=== PATIENT | male | born 1960 | race Caucasian/White ===

== ENCOUNTER → 2016-12-24 | Outpatient (CLI) | payer OTHER, MEDICARE ==
[2015-05-09 12:00] VITALS: BP 144/93
[~2016-12-24] MED LIST: ALPR0.5T PO; ASCO500C PO; ASPI-630 PO; ASPI325T70 PO; CHOL200074 PO; CLOP75TA PO; CYCL10TA2 PO; DICL1TAB50 PO; GEMF600T3 PO; HYDR1TAB26 PO; LISI-334 PO; LISI1TAB7 PO; METO25TA4 PO; MULT1TAB52 PO; NITR0.4T22 SL; OMEG500C PO; PANT20TA3 PO; PRAS10TA9 PO; REGADENOSON 0.4 MG/5 ML DISP.SYRIN. IV ONE; SIMV20TA3 PO
--- NOTE | 2016-12-24 11:12 | CARD ---
APPROVED REPORT EXAM: Two-dimensional and M-mode echocardiogram with Doppler and color Doppler. Other Information Quality : GoodHR: 74bpm Rhythm : NSR INDICATION Cardiac Disease: CAD 2D DIMENSIONS RVDd3.9 (2.9-3.5cm)Left Atrium(2D)3.7 (1.6-4.0cm) IVSd0.9 (0.7-1.1cm)Aortic Root(2D)3.1 (2.0-3.7cm) LVDd4.2 (3.9-5.9cm)LVOT Diameter2.3 (1.8-2.4cm) PWd0.9 (0.7-1.1cm)LVDs2.6 (2.5-4.0cm) FS (%) 37.2 %SV51.7 ml LVEF(%)67.6 (>50%) Aortic Valve AoV Peak Tunde.118.3cm/sAoV VTI23.9cm AO Peak GR.5.6mmHgLVOT Peak Tunde.101.8cm/s AO Mean GR.3mmHgAVA (VMAX)3.52cm2 Mitral Valve MV E Ekvsregn43.6cm/sMV E Peak Gr.2mmHg MV DECEL [id number] A Diazishc54.7cm/s MV E Mean Gr.1mmHgE/A Ratio0.8 MV A Cmaqpnvw60wz Pulmonary Valve PV Peak Euyxjqtd45.8cm/s Tricuspid Valve TR P. Louthglt616xt/sTR Peak Gr.22mmHg Pulmonary Vein S1 Mtwhundt21.6cm/sD2 Znnhqnop40.2cm/s PVa bxrbtngi20cddr LEFT VENTRICLE The left ventricle is normal size. There is normal left ventricular wall thickness. The left ventricu lar systolic function is normal and the ejection fraction is within normal range. The Ejection Fracti on is 65-70%. There is normal LV segmental wall motion. Transmitral Doppler flow pattern is Grade I-a bnormal relaxation pattern. RIGHT VENTRICLE The right ventricle is mildly dilated. There is normal right ventricular wall thickness. The right ve ntricular systolic function is normal. ATRIA The left atrium size is normal. The right atrium size is normal. The interatrial septum is intact wit h no evidence for an atrial septal defect or patent foramen ovale as noted on 2-D or Doppler imaging. AORTIC VALVE The aortic valve is mildly thickened. The aortic valve is trileaflet. Doppler and Color Flow revealed no significant aortic regurgitation. There is no significant aortic valvular stenosis. MITRAL VALVE The mitral valve leaflets are mildly thickened. There is no evidence of mitral valve prolapse. There is no mitral valve stenosis. Doppler and Color Flow revealed trace mitral regurgitation. TRICUSPID VALVE Doppler and Color Flow revealed trace tricuspid regurgitation. The pulmonary artery systolic pressure is estimated at 25 mmHg. There is no pulmonary hypertension. PULMONIC VALVE The pulmonic valve is not well visualized but appears to open adequately. Doppler and Color Flow reve aled trace pulmonic valvular regurgitation. There is no pulmonic valvular stenosis by spectral Dopple r. GREAT VESSELS The aortic root is normal in size. The ascending aorta is normal in size. The pulmonary artery is nor mal. The IVC is normal in size and collapses >50% with inspiration. PERICARDIAL EFFUSION There is no evidence of significant pericardial effusion. Critical Notification Critical Value: No <Conclusion> The left ventricular systolic function is normal and the ejection fraction is within normal range. Th e Ejection Fraction is 65-70%. There is normal LV segmental wall motion.
--- NOTE | 2016-12-24 13:56 | RAD ---
APPROVED REPORT Test Type: Pharmacological Stress Nurse/Tech: Carmina Dixon R.N. Test Indications: CAD, Cardiac History: stents, high cholesterol Medications: See Electronic Medical Record Medical History: See Electronic Medical Record Resting ECG: SR Resting Heart Rate: 74 bpm Resting Blood Pressure: 127/75mmHg Pretest Chest Pain: No chest pain Nurse/Tech Notes S1S2, lungs CTA Consent: The procedure was explained to the patient in lay terms. Informed consent was witnessed. Elliott eout was entered into [employer]. History and Stress Test performed by RT Jamey (R) (N) Pharm. Details Pharmacologic stress testing was performed using 0.4mg per 5ml of regadenoson given intravenously ove r 7-10 seconds. Stress Symptoms No chest pain or symptoms. POST EXERCISE Reason for Termination: Infusion complete Max HR: 140 bpm Max Blood Pressure: 140/63mmHg Blood Pressure response to exercise: Normal blood pressure response during stress. Heart Rate response to exercise: wnl Chest Pain: No. Arrhythmia: No. ST Change: Yes. depression noted in leads V3-V6. notified Holly FOSTER regarding these changes at 11:19 INTERPRETATION Stress EKG Conclusion: Abnormal EKG response with diffuse anterolateral TWI and 2mm ST segment depres vikas after vasodilator infusion. Subtle NANCY in aVR of less than 1 mm. Imaging Protocol IMAGE PROTOCOL: Rest Tc-99m/stress Tc-99m 1 day Rest: Stress: Viability: Radiopharm.Tc99m BzmuhgebrWz00p Sestamibi Gwbc20tQx 32mCi Img Date 12/24/2016 12/24/2016 Inj-Img Uxwc51rhj. 60min. Rest Admin Site:IV - Left AntecubitalAdministrator:YVONNE Thomas, ARRT (R)(N) Stress Admin Site: IV - Left AntecubitalAdministrator: RT Jamey (R)(N) STRESS DATA End Diast. Vol.82.0mlAv. Heart Rate74.0bpm End Syst. Vol.20.0mlCO Index BSA0.0L/min Myocardial Bfsw533.0gEject. Itligvkl48.0% Stress Rates Pk. Fill Rate2.71EDV/secLVtime Pk. Fill 225.29msec Pk. Empty Rate4.10ESV/secLVtime Pk. Zicxw584.06msec 1/3 Pk. Fill1.41EDV/sec Stress Scores Regional WT0.00Summed WT0.00 Regional WM0.00Summed WM2.00 The rest and stress images show normal perfusion, normal contraction and thickening. LV Perfusion 1 TCD/TID: Yes LV Perf. Quant 17 Seg. SSS0.00 17 Seg. SRS0.00 17 Seg. SDS0.00 Stress Defect Extent (% LAD)0.00Rest Defect Extent (% LAD)0.00Rev. Defect Extent (% LAD)0.00 Stress Defect Extent (% LCX) 5.00Rest Defect Extent (% LCX)0.00Rev. Defect Extent (% LCX)2.50 Stress Defect Extent (% RCA)0.00Rest Defect Extent (% RCA)0.00Rev. Defect Extent (% RCA)0.00 Stress Defect Extent (% KAVON)0.90Rest Defect Extent (% KAVON)0.00Rev. Defect Extent (% KAVON)0.40 Other Information Quality:Good Risk Assessment: Moderate-High Risk Conclusion 1. Abnormal EKG response with anterolateral ST segment changes. 2. Normal perfusion at stress/rest but there is a higher than normal TID ratio suggestive of balanced ischemia. 3. Normal EF at > 70% 4. Moderate risk study Recommendations Given abnormal EKG response and threshold levels of transient ischemic dilation, consider coronary an giography if indicated.
== END | disposition home or self-care (01) ==
LOC: ECHO 08:17
PROVIDERS: ATTEND Internal Medicine Cardiovascular Disease
DX: I25.10 Atherosclerotic heart disease of native coronary artery without angina pectoris (principal); I31.3 Pericardial effusion (noninflammatory); I10 Essential (primary) hypertension; I49.5 Sick sinus syndrome; R94.31 Abnormal electrocardiogram [ECG] [EKG]; Z79.01 Long term (current) use of anticoagulants
CPT/HCPCS: 78452; 93017; 93306; 96374; 96375; 96376; A9500; J2785

== ENCOUNTER 2017-01-07 08:57 | Outpatient (CLI) | payer OTHER, MEDICARE ==
[2017-01-07] VITALS (9 sets, daily range): BP systolic 94–124; BP diastolic 60–73
[~2017-01-07] VITALS: Ht 170.2 cm; Wt 79.4 kg
[~2017-01-07 08:57] MED LIST changes: -ASCO500C PO; -ASPI-630 PO; -MULT1TAB52 PO; -NITR0.4T22 SL; -REGADENOSON 0.4 MG/5 ML DISP.SYRIN. IV ONE
[2017-01-07] MEDS ORDERED: IOHEXOL 300 MG/ML 100ML VIAL. ONE (09:25)
[2017-01-07] MEDS ORDERED: LIDOCAINE 2% 20 ML VIAL. ONE (09:25)
[2017-01-07 09:26] LABS: HEMATOCRIT 43.8 % (39.0-53.0); HEMOGLOBIN 15.4 g/dL (13.0-17.5); RED BLOOD COUNT 4.76 x10^6/uL (4.30-5.70); RED CELL DISTRIBUTION WIDTH 12.9 % (11.5-14.5); WHITE BLOOD COUNT 6.3 x10^3/uL (4.0-11.0)
[2017-01-07 09:36] LABS: INR 1.1 (0.8-1.1); PROTHROMBIN TIME PATIENT 13.5 SEC (11.7-14.0)
[2017-01-07] MEDS ORDERED: HEPARIN for IV BOLUS 10,000 UNIT/10 ML VIAL. ONE (09:48)
[2017-01-07] MEDS ORDERED: MIDAZOLAM HCL/PF 2 MG/2 ML VIAL. ONE (09:48)
[2017-01-07] MEDS ORDERED: VERAPAMIL 5 MG/2 ML VIAL. ONE (09:48)
[2017-01-07] MEDS ORDERED: fentaNYL PF VIAL 100 MCG/2 ML VIAL ONE (09:48)
[2017-01-07] MEDS ORDERED: NITROGLYCERIN 200 MCG/2 ML SYRINGE FOR CATH/VASC LAB. ONE (09:48)
[2017-01-07] MEDS ORDERED: MULT1TAB52 PO (09:52)
[2017-01-07] MEDS ORDERED: ASPI-630 PO (09:52)
[2017-01-07] MEDS ORDERED: CLOP75TA PO (09:52)
[2017-01-07] MEDS ORDERED: NITR0.4T22 SL (09:52)
[2017-01-07] MEDS ORDERED: ASCO500C PO (09:52)
[2017-01-07] MEDS ORDERED: HEPARIN for IV BOLUS 10,000 UNIT/10 ML VIAL. IART ONE (10:00)
[2017-01-07] MEDS ORDERED: LIDOCAINE 2% 20 ML VIAL. IJ ONE (10:00)
[2017-01-07] MEDS ORDERED: fentaNYL PF VIAL 100 MCG/2 ML VIAL IV ONE (10:00)
[2017-01-07] MEDS ORDERED: NITROGLYCERIN 200 MCG/2 ML SYRINGE FOR CATH/VASC LAB. IART ONE (10:00)
[2017-01-07] MEDS ORDERED: MIDAZOLAM HCL/PF 2 MG/2 ML VIAL. IV ONE (10:00)
[2017-01-07] MEDS ORDERED: VERAPAMIL 5 MG/2 ML VIAL. IART ONE (10:00)
[2017-01-07] MEDS ORDERED: IOHEXOL 300 MG/ML 100ML VIAL. IART ONE (10:00)
[2017-01-07 10:03] LABS: CALCIUM 9.5 mg/dL (8.5-10.1); CREATININE 0.9 mg/dL (0.7-1.3); GFR 86.7; POTASSIUM 4.2 mmol/L (3.5-5.1)
[2017-01-07] MEDS ORDERED: IV 1/2 NORMAL SALINE 1,000 ML IV SCH (10:27)
--- NOTE | 2017-01-07 10:29 | PDOC ---
MODERATE SEDATION ASSESSMENT RISKS/ALTERNATIVES Risks/Alternatives Risks and alternatives of this type of sedation and procedure discussed with: RISK/ALTERNATIVES: Patient H & P ON CHART H & P H & P on chart and reviewed for co-morbid conditions and appropriate labs. H&P ON CHART: Yes STATUS PREG STATUS ASSESSED: N/A MEDS/ALLERGIES REVIEWED Meds/Allergies Reviewed Medications and Allergies including time and route of recently administered narcotics and sedatives. MEDS/ALLERGIES REVIEWED: Yes ASA RATING ASA RATING: II AIRWAY ASSESSMENT Airway Assessment Airway patency, oral function limitations, presence of caps, crowns, dentures, partials, and ability to extend neck assessed. AIRWAY ASSESSMENT: Yes MALLAMPATI SCORE MALLAMPATI SCORE: II PRE-SEDATION ASSESSMENT PRE-SEDATION ASSESSMENT: Yes LILLY GARVEY MD Jan 07, 2017 10:28
--- NOTE | 2017-01-07 10:55 | CARD ---
APPROVED REPORT Procedure(s) performed: Left heart catheterization, selective coronary angiography and left ventricul ography via right transradial approach Moderate Sedation: 24 minutes INDICATION The indication(s) include : Coronary artery disease, positive stress test. PROCEDURE NARRATIVE After explaining the risks, benefits and alternative options, informed consent was obtained from gustavo ent. Patient was brought to the cardiac Lining Machine Tender and right wrist was prepped and draped in the usual fashion after confirming a positive modified Nick's test. Arterial access was obtained in the [facility] radial artery and a 6 Bahraini sheath was inserted. 6 Bahraini Rommel catheter was used to perform namita ective angiography of the left and right coronary arteries. 6 Bahraini pigtail catheter was used to pe rform left ventriculography. Patient tolerated the procedure well. Hemostasis was achieved using TR band. There were no immediate complications. The following findings were noted. FINDINGS 1. Hemodynamics: Left ventricular end-diastolic pressure of 148mmHg. No pullback gradient across th e aortic valve. 2. Left ventriculography: Normal left ventricle systolic function with ejection fraction estimated at 70%. No significant mitral regurgitation seen. 3. Coronary angiography: a. The left main coronary artery arose from the left sinus of Valsalva, gave rise to the left anteri or descending and left circumflex arteries and did not show any significant stenosis. b. The left anterior descending artery showed widely patent stents in mid segment and the first diag onal branch. c. The left circumflex artery did not show any significant stenosis. d. The right coronary artery was a large and dominant vessel arising from the right sinus of Valsalv a that did not show any significant stenosis. Conclusion 1. No significant coronary artery disease with patent previously placed stents in left anterior desc ending artery and diagonal branch 2. Normal left ventricular systolic function with ejection fraction estimated at 70%. Recommendations Medical Therapy
== END 2017-01-07 13:15 | disposition home or self-care (01) ==
LOC: CCL 08:57
PROVIDERS: ATTEND Internal Medicine Cardiovascular Disease
DX: I25.10 Atherosclerotic heart disease of native coronary artery without angina pectoris (principal); E78.00 Pure hypercholesterolemia, unspecified; I10 Essential (primary) hypertension; K21.9 Gastro-esophageal reflux disease without esophagitis; F41.9 Anxiety disorder, unspecified; Z87.39 Personal history of other diseases of the musculoskeletal system and connective tissue
CPT/HCPCS: 36415; 80048; 85027; 85610; 93458; 99152; 99153; C1769; C1892; J1644; J2250; J3010; J3490; Q9967; J2001

== ENCOUNTER → 2018-02-01 | Outpatient (CLI) | payer MEDICARE ==
[2017-01-07 12:50] VITALS: BP 94/60
[~2018-02-01] MED LIST changes: +ASCO500C PO; +ASPI-630 PO; -GEMF600T3 PO; +GEMF600T4 PO; +MULT1TAB52 PO; +NITR0.4T22 SL
--- NOTE | 2018-02-01 13:38 | CARD ---
MR#: [id number] Date of Study: 02/01/2018 Ordering Physician: LILLY AGRVEY, Referring Physician: LILLY GARVEY, Tech: Anuradha Pardo APPROVED REPORT EXAM: Two-dimensional and M-mode echocardiogram with Doppler and color Doppler. Other Information Quality : GoodHR: 72bpm INDICATION CAD RISK FACTORS Hypertension Hyperlipidemia 2D DIMENSIONS RVDd3.6 (2.9-3.5cm)Left Atrium(2D)3.8 (1.6-4.0cm) IVSd1.2 (0.7-1.1cm)Aortic Root(2D)3.5 (2.0-3.7cm) LVDd4.5 (3.9-5.9cm)LVOT Diameter2.4 (1.8-2.4cm) PWd1.1 (0.7-1.1cm)LVDs2.5 (2.5-4.0cm) FS (%) 45.4 %SV71.3 ml Aortic Valve AoV Peak Tunde.102.7cm/sAoV VTI18.7cm AO Peak GR.4.2mmHgAO Mean GR.2mmHg Mitral Valve MV E Usuzyrko92.3cm/sMV DECEL AJSK507rp MV A Ohwibeyn69.7cm/sMV SEC50mz E/A Ratio0.9MVA (PHT)2.91cm2 TDI E/Medial E'8.6 Pulmonary Valve PV Peak Hbwcgvwu01.2cm/sPV Peak Grad.3mmHg Tricuspid Valve TR P. Jzaicwew630py/sRAP PCNKSPGT8yxUd TR Peak Gr.30ydWpBKWJ90cfZu LEFT VENTRICLE The left ventricle is normal size. There is borderline to mild concentric left ventricular hypertroph y. The left ventricular systolic function is normal and the ejection fraction is within normal range. The Ejection Fraction is 60-65%. There is normal LV segmental wall motion. Transmitral Doppler flow pattern is Grade II-pseudonormal filling dynamics. RIGHT VENTRICLE The right ventricle is normal size. There is normal right ventricular wall thickness. The right ventr icular systolic function is normal. ATRIA The left atrium size is normal. The right atrium size is normal. The interatrial septum is intact wit h no evidence for an atrial septal defect or patent foramen ovale as noted on 2-D or Doppler imaging. AORTIC VALVE The aortic valve is normal in structure and function. Doppler and Color Flow revealed trace aortic re gurgitation. There is no significant aortic valvular stenosis. MITRAL VALVE The mitral valve is normal in structure and function. Doppler and Color-flow revealed trace mitral re gurgitation. TRICUSPID VALVE The tricuspid valve is normal in structure and function. Doppler and Color Flow revealed trace tricus pid regurgitation. PULMONIC VALVE The pulmonary valve is normal in structure and function. Doppler and Color Flow revealed trace pulmon ic valvular regurgitation. GREAT VESSELS The aortic root is normal in size. The IVC was not visualized. PERICARDIAL EFFUSION There is no evidence of significant pericardial effusion. Critical Notification Critical Value: No <Conclusion> The left ventricle is normal size. The left ventricular systolic function is normal and the ejection fraction is within normal range. The Ejection Fraction is 60-65%. There is borderline to mild concentric left ventricular hypertrophy. There is no significant aortic valvular stenosis. Doppler and Color Flow revealed trace aortic regurgitation. Doppler and Color-flow revealed trace mitral regurgitation. Doppler and Color Flow revealed trace tricuspid regurgitation. Signed by : Everett Arzate MD Electronically Approved : 02/01/2018 13:37:03
== END | disposition home or self-care (01) ==
LOC: ECHO 08:36
PROVIDERS: ATTEND Internal Medicine Cardiovascular Disease
DX: I25.10 Atherosclerotic heart disease of native coronary artery without angina pectoris (principal); I10 Essential (primary) hypertension; E78.5 Hyperlipidemia, unspecified
CPT/HCPCS: 93306

== ENCOUNTER 2019-01-26 07:00 | Outpatient (CLI) | payer OTHER ==
[2019-01-26] VITALS (12 sets, daily range): BP systolic 107–134; BP diastolic 71–83
[~2019-01-26] VITALS: Ht 167.6 cm; Wt 81.6 kg
[~2019-01-26 07:00] MED LIST changes: -GEMF600T4 PO; +GEMF600T8 PO; +LISI1TAB20 PO; -LISI1TAB7 PO
[2019-01-26] MEDS ORDERED: SIMV40TA3 PO (07:34)
[2019-01-26] MEDS ORDERED: HYDR-2765 PO (07:34)
[2019-01-26] MEDS ORDERED: METO50TA6 PO (07:34)
[2019-01-26] MEDS ORDERED: LISI1TAB19 PO (07:34)
[2019-01-26] MEDS ORDERED: IODIXANOL 320 MG/ML 100 ML VIAL. ONE (07:41)
[2019-01-26] MEDS ORDERED: LIDOCAINE 1% PF 2 ML VIAL. ONE (07:41)
[2019-01-26 07:45] LABS: HEMOGLOBIN 14.6 g/dL (13.0-17.5); RED BLOOD COUNT 4.56 x10^6/uL (4.30-5.70); RED CELL DISTRIBUTION WIDTH 13.2 % (11.5-14.5); WHITE BLOOD COUNT 6.8 x10^3/uL (4.0-11.0)
[2019-01-26 07:55] LABS: PROTHROMBIN TIME PATIENT 13.8 SEC (11.7-14.0)
[2019-01-26 08:01] LABS: CALCIUM 9.2 mg/dL (8.5-10.1); GFR 76.2; POTASSIUM 3.7 mmol/L (3.5-5.1)
[2019-01-26] MEDS ORDERED: fentaNYL PF VIAL 100 MCG/2 ML VIAL ONE (08:24)
[2019-01-26] MEDS ORDERED: MIDAZOLAM HCL/PF 2 MG/2 ML VIAL. ONE (08:25)
[2019-01-26] MEDS ORDERED: NITROGLYCERIN 200 MCG/2 ML SYRINGE FOR CATH/VASC LAB. ONE (08:25)
[2019-01-26] MEDS ORDERED: HEPARIN for IV BOLUS 10,000 UNIT/10 ML VIAL. ONE (08:25)
[2019-01-26] MEDS ORDERED: VERAPAMIL 5 MG/2 ML VIAL. ONE (08:25)
[2019-01-26] MEDS ORDERED: NITROGLYCERIN SUBLINGUAL 0.4 MG BOTTLE OF 25. SL PRN (09:15)
[2019-01-26] MEDS ORDERED: LIDOCAINE 1% PF 2 ML VIAL. INJ ONE (09:15)
[2019-01-26] MEDS ORDERED: HEPARIN for IV BOLUS 10,000 UNIT/10 ML VIAL. IART ONE (09:15)
[2019-01-26] MEDS ORDERED: IODIXANOL 320 MG/ML 100 ML VIAL. IART ONE (09:15)
[2019-01-26] MEDS ORDERED: 0.9 % SODIUM CHLORIDE 10 ML DISP.SYRIN. IV PRN (09:15)
[2019-01-26] MEDS ORDERED: fentaNYL PF VIAL 100 MCG/2 ML VIAL IV ONE (09:15)
[2019-01-26] MEDS ORDERED: IV 1/2 NORMAL SALINE 1,000 ML IV SCH (09:15)
[2019-01-26] MEDS ORDERED: NITROGLYCERIN 200 MCG/2 ML SYRINGE FOR CATH/VASC LAB. IART ONE (09:15)
[2019-01-26] MEDS ORDERED: VERAPAMIL 5 MG/2 ML VIAL. IART ONE (09:15)
[2019-01-26] MEDS ORDERED: MIDAZOLAM HCL/PF 2 MG/2 ML VIAL. IV ONE (09:15)
--- NOTE | 2019-01-26 09:15 | PDOC ---
MODERATE SEDATION ASSESSMENT RISKS/ALTERNATIVES Risks/Alternatives Risks and alternatives of this type of sedation and procedure discussed with: RISK/ALTERNATIVES: Patient H & P ON CHART H & P H & P on chart and reviewed for co-morbid conditions and appropriate labs. H&P ON CHART: Yes STATUS PREG STATUS ASSESSED: N/A MEDS/ALLERGIES REVIEWED Meds/Allergies Reviewed Medications and Allergies including time and route of recently administered narcotics and sedatives. MEDS/ALLERGIES REVIEWED: Yes ASA RATING ASA RATING: II AIRWAY ASSESSMENT Airway Assessment Airway patency, oral function limitations, presence of caps, crowns, dentures, partials, and ability to extend neck assessed. AIRWAY ASSESSMENT: Yes MALLAMPATI SCORE MALLAMPATI SCORE: II PRE-SEDATION ASSESSMENT PRE-SEDATION ASSESSMENT: Yes LILLY GARVEY MD Jan 26, 2019 09:15
--- NOTE | 2019-01-26 09:22 | CARD ---
MR#: [id number] Date of Study: 01/26/2019 Ordering Physician: LILLY GARVEY, Referring Physician: LILLY GARVEY Tech: PARIS DE GUZMAN RTR APPROVED REPORT Technologist: PARIS DE GUZMAN RTR Nurse: Kelly Juarez R.N. Procedure(s) performed: Left heart catheterization, selective coronary angiography and left ventricul ography via right transradial approach MODERATE SEDATION TIME: 34 MINUTES FLUORO TIME: 2.8 MIN DOSE: 42.9 GYCM2 CONTRAST: 90 INDICATION The indication(s) include : unstable angina . CSHA Clinical Frailty Scale CSHA Clinical Frailty Scale: Managing Well Heart Failure Heart Failure: No PROCEDURE NARRATIVE After explaining the risks, benefits and alternative options, informed consent was obtained from gustavo ent. Patient was brought to the cardiac Supervisor Offset Plate Preparation and right wrist was prepped and draped in the usual fashion after confirming a positive modified Nick's test. Arterial access was obtained in the [facility] t radial artery and a 6 Palauan sheath was inserted. 6 Palauan Rommel catheter was used to perform namita ective angiography of the left and right coronary arteries. 6 Palauan pigtail catheter was used to pe rform left ventriculography. Patient tolerated the procedure well. Hemostasis was achieved using TR band. There were no immediate complications. The following findings were noted. FINDINGS 1. Hemodynamics: Left ventricular end-diastolic pressure of 15 mmHg. No pullback gradient across th e aortic valve. 2. Left ventriculography: Normal left ventricle systolic function with ejection fraction estimated at 65-70%. No significant mitral regurgitation seen. 3. Coronary angiography: a. The left main coronary artery arose from the left sinus of Valsalva, gave rise to the left anteri or descending and left circumflex arteries and did not show any significant stenosis. b. The left anterior descending artery showed patent stents in the midsegment of LAD and the proxima l segment of the diagonal branch. c. The left circumflex artery did not show any significant stenosis. d. The right coronary artery was a large and dominant vessel arising from the right sinus of Valsalv a that showed 20% stenosis in the midsegment. Conclusion 1. No significant coronary artery disease with patent previously placed stents in LAD and diagonal b ranch 2. Normal left ventricle systolic function with ejection fraction estimated at 65-70%. Recommendations Medical Therapy Signed by : Lilly Garvey, Electronically Approved : 01/26/2019 09:22:05
--- NOTE | 2019-01-26 12:30 | NUR ---
Discharge Note: BOZENA NARANJO [facility] Discharge instructions and discharge home medications reviewed with Patient and Spouse, a copy given. All questions have been answered and understanding verbalized. The following instructions and handouts were given: Radial Site Care and Post Moderate Sedation Discontinued lines and drains: Left FA IV dc'd and tip intact. Patient discharged to home with spouse and son via car.
== END 2019-01-26 12:30 | disposition home or self-care (01) ==
LOC: CCL 07:00
PROVIDERS: ATTEND Internal Medicine Cardiovascular Disease
DX: I25.110 Atherosclerotic heart disease of native coronary artery with unstable angina pectoris (principal); Z79.01 Long term (current) use of anticoagulants
CPT/HCPCS: 36415; 80048; 85027; 85610; 85730; 93458; 99152; 99153; C1769; C1892; J1644; J2250; J3010; J3490; Q9967

== ENCOUNTER 2020-04-02 21:29 | Inpatient (IN) | payer MEDICARE, OTHER ==
[~2020-04-02] VITALS: Ht 170.2 cm; Wt 83.7 kg
[~2020-04-02 21:29] MED LIST changes: +GEMF600T20 PO; -GEMF600T8 PO; +HYDR-2765 PO; -LISI-334 PO; +LISI1TAB37 PO; +LISI20TA18 PO; +METO50TA6 PO; +MULT-445 PO; -MULT1TAB52 PO; +SIMV20TA18 PO; -SIMV20TA3 PO; +SIMV40TA18 PO
--- NOTE | 2020-04-02 21:53 | ED.ADGEN ---
Past Medical History Past Medical History: CAD, High Cholesterol Past Surgical History: Angioplasty Additional Past Surgical Histo: STENT PLACEMENT Smoking Status: Never Smoker Alcohol Use: None Drug Use: None General Adult EDM: Chief Complaint: CHEST PAIN HPI: HPI: Patient is a 59 year old male with a history of coronary artery disease and 3 stents coming in with left-sided chest pain that started about 6 an hour prior to arrival. Patient states he has been working in his house just on a toilet since this morning. Said the pain started about 2 PM. Says initially it is a sharp "twinge" of pain in his left chest and now is having chest heaviness. Says he took a nitro at that time with improvement, took a second nitroglycerin at 8 PM. Patient states the pain is 5/10 he says it at the time he felt lightheaded and "clammy" denies any radiation of the pain, denies any diaphoresis. Patient states he otherwise has been well and has been compliant with his medications including clopidogrel. 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 Denies cough, shortness of breath, headaches, vision changes, changes in urination, diarrhea. Review of Systems: Review of Systems: My all other systems within normal limits except for as noted in the HPI Current Medications: Current Medications Medications (Trade) Dose Ordered Sig/Donte Start Time Stop Time Status Last Admin Dose Admin Aspirin (Aspirin Chewable) 324 mg 1X ONCE 04/02/20 22:30 04/02/20 22:31 DC 04/02/20 22:05 324 MG Fentanyl Citrate (Fentanyl 2ml Vial) 25 mcg PRN Q15MIN PRN 04/02/20 22:00 04/03/20 21:59 04/02/20 22:06 25 MCG Nitroglycerin (Nitrostat) 0.4 mg PRN Q5MIN PRN 04/02/20 22:00 04/03/20 21:59 04/02/20 22:06 0.4 MG Allergies: Allergies: Allergies Coded Allergies Type Severity Reaction Last Updated Verified tramadol Adverse Reaction Intermediate "Heart feels funny" per patient 01/26/19 Yes Physical Exam: PE: Constitutional: Well developed, well nourished, no acute distress, non-toxic appearance. [] HENT: Normocephalic, atraumatic, bilateral external ears normal, oropharynx moist, no oral exudates, nose normal. [] Eyes: PERRLA, EOMI, conjunctiva normal, no discharge. [] Neck: Normal range of motion, no tenderness, supple, no stridor. [] Cardiovascular:Heart rate regular rhythm, no murmur [] Lungs & Thorax: Bilateral breath sounds clear to auscultation [] Abdomen: Bowel sounds normal, soft, no tenderness, no masses, no pulsatile masses. [] Skin: Warm, dry, no erythema, no rash. [] Back: No tenderness, no CVA tenderness. [] Extremities: No tenderness, no cyanosis, no clubbing, ROM intact, no edema. [] Neurologic: Alert and oriented X 3, normal motor function, normal sensory function, no focal deficits noted. [] Psychologic: Affect normal, judgement normal, mood normal. [] Current Patient Data: Labs: Laboratory Tests Test 04/02/20 21:44 White Blood Count 9.5 x10^3/uL (4.0-11.0) Red Blood Count 4.36 x10^6/uL (4.30-5.70) Hemoglobin 14.0 g/dL (13.0-17.5) Hematocrit 40.4 % (39.0-53.0) Mean Corpuscular Volume 93 fL (79-100) Mean Corpuscular Hemoglobin 32 pg (25-35) Mean Corpuscular Hemoglobin Concent 35 g/dL (31-37) Red Cell Distribution Width 13.4 % (11.5-14.5) Platelet Count 342 x10^3/uL (140-400) Neutrophils (%) (Auto) 61 % (31-73) Lymphocytes (%) (Auto) 26 % (24-48) Monocytes (%) (Auto) 11 % (0-9) H Eosinophils (%) (Auto) 1 % (0-3) Basophils (%) (Auto) 1 % (0-3) Neutrophils # (Auto) 5.8 x10^3/uL (1.8-7.7) Lymphocytes # (Auto) 2.5 x10^3/uL (1.0-4.8) Monocytes # (Auto) 1.0 x10^3/uL (0.0-1.1) Eosinophils # (Auto) 0.1 x10^3/uL (0.0-0.7) Basophils # (Auto) 0.1 x10^3/uL (0.0-0.2) Prothrombin Time 14.5 SEC (11.7-14.0) H Prothrombin Time INR 1.2 (0.8-1.1) H Sodium Level 132 mmol/L (136-145) L Potassium Level 3.2 mmol/L (3.5-5.1) L Chloride Level 92 mmol/L (98-107) L Carbon Dioxide Level 28 mmol/L (21-32) Anion Gap 12 (6-14) Blood Urea Nitrogen 12 mg/dL (8-26) Creatinine 1.0 mg/dL (0.7-1.3) Estimated GFR (Cockcroft-Gault) 76.0 BUN/Creatinine Ratio 12 (6-20) Glucose Level 122 mg/dL (70-99) H Calcium Level 9.2 mg/dL (8.5-10.1) Magnesium Level 2.1 mg/dL (1.8-2.4) Total Bilirubin 0.5 mg/dL (0.2-1.0) Aspartate Amino Transferase (AST) 34 U/L (15-37) Alanine Aminotransferase (ALT) 62 U/L (16-63) Alkaline Phosphatase 75 U/L (46-116) Troponin I Quantitative < 0.017 ng/mL (0.000-0.055) HB-Dnu-L-Type Natriuretic Peptide 27 pg/mL (0-124) Total Protein 8.1 g/dL (6.4-8.2) Albumin 4.5 g/dL (3.4-5.0) Albumin/Globulin Ratio 1.3 (1.0-1.7) Laboratory Tests 04/02/20 21:44 Laboratory Tests 04/02/20 21:44 Vital Signs: Vital Signs Date Time Temp Pulse Resp B/P (MAP) Pulse Ox O2 Delivery O2 Flow Rate FiO2 04/02/20 23:18 11 147/77 (100) 98 Room Air 04/02/20 23:03 98 04/02/20 21:30 98.5 98.5 EKG: EKG: Sinus tachycardia, incomplete right bundle-branch block, no ST elevation or depression, heart rate 110. [] Heart Score: HEART Score for Chest Pain: HEART Score for Chest Pain Response (Comments) Value History Highly Suspicious 2 ECG Nonspecific Repolarizatio 1 Age >45 - < 65 1 Risk Factors >3 Risk Factors or Hx CAD 2 Troponin < Normal Limit 0 Total 6 Risk Factors: Risk Factors: DM, Current or recent (<one month) smoker, HTN, HLP, family history of CAD, obesity. Risk Scores: Score 0 - 3: 2.5% MACE over next 6 weeks - Discharge Home Score 4 - 6: 20.3% MACE over next 6 weeks - Admit for Clinical Observation Score 7 - 10: 72.7% MACE over next 6 weeks - Early Invasive Strategies Radiology/Procedures: Radiology/Procedures: INDICATION: Reason: chest pain / Spl. Instructions: / History: COMPARISON: April 2015 FINDINGS: Single view of chest obtained. Hypoexpanded exam. Left lung base is obscured by the overlying cardiac silhouette. No definite consolidation elsewhere in the lungs. IMPRESSION: * Hypoexpanded examination without definite focal airspace consolidation. [] Course & Med Decision Making: Course & Med Decision Making Pertinent Labs and Imaging studies reviewed. (See chart for details) Patient is a heart score of 6 and having runs of SVT on the monitor the last 5 to 10 seconds. Discussed with patient when he is runs of SVT occurred they correlate with his worsening chest discomfort. [] Dragon Disclaimer: Dragon Disclaimer: This electronic medical record was generated, in whole or in part, using a voice recognition dictation system. Departure Departure Impression: Primary Impression: Unstable angina pectoris Additional Impression: SVT (supraventricular tachycardia) Disposition: 09 ADMITTED INPT THIS HOSP Admitting Physician: HIMS Condition: STABLE Referrals: XIOMARA SALINAS MD (PCP) Problem Qualifiers KAVYA ALEJO MD Apr 02, 2020 21:53
[2020-04-02 21:55] LABS: BASO # 0.1 x10^3/uL (0.0-0.2); BASO % 1 % (0-3); EOS # 0.1 x10^3/uL (0.0-0.7); EOS % 1 % (0-3); HEMATOCRIT 40.4 % (39.0-53.0); LYMPH # 2.5 x10^3/uL (1.0-4.8); LYMPH % 26 % (24-48); MEAN CORPUSCULAR HEMOGLOBIN 32 pg (25-35); MEAN CORPUSCULAR HGB CONC 35 g/dL (31-37); MEAN CORPUSCULAR VOLUME 93 fL (79-100); MONO % 11 % (0-9); NEUT # 5.8 x10^3/uL (1.8-7.7); NEUT % 61 % (31-73); PLATELET COUNT 342 x10^3/uL (140-400); RED BLOOD COUNT 4.36 x10^6/uL (4.30-5.70); RED CELL DISTRIBUTION WIDTH 13.4 % (11.5-14.5); WHITE BLOOD COUNT 9.5 x10^3/uL (4.0-11.0)
[2020-04-02] MEDS ORDERED: fentaNYL PF VIAL 100 MCG/2 ML VIAL IV PRN (22:00)
[2020-04-02] MEDS ORDERED: NITROGLYCERIN SUBLINGUAL 0.4 MG BOTTLE OF 25. SL PRN ×2 (22:00→23:30)
[2020-04-02 22:04] LABS: PROTHROMBIN TIME PATIENT 14.5 SEC (11.7-14.0)
[2020-04-02 22:05] LABS: CALCIUM 9.2 mg/dL (8.5-10.1); POTASSIUM 3.2 mmol/L (3.5-5.1)
[2020-04-02 22:11] LABS: ALBUMIN 4.5 g/dL (3.4-5.0); ALBUMIN/GLOBULIN RATIO 1.3 (1.0-1.7); MAGNESIUM 2.1 mg/dL (1.8-2.4); TOTAL BILIRUBIN 0.5 mg/dL (0.2-1.0); TOTAL PROTEIN 8.1 g/dL (6.4-8.2)
[2020-04-02] MEDS ORDERED: ASPIRIN CHEWABLE 81 MG TABLET. PO ONE (22:30)
--- NOTE | 2020-04-02 23:08 | RAD ---
INDICATION: Reason: chest pain / Spl. Instructions: / History: COMPARISON: April 2015 FINDINGS: Single view of chest obtained. Hypoexpanded exam. Left lung base is obscured by the overlying cardiac silhouette. No definite consol idation elsewhere in the lungs. IMPRESSION: * Hypoexpanded examination without definite focal airspace consolidation. Electronically signed by: Arben Velásquez MD (04/02/2020 11:06 PM) [id number]
[2020-04-02] MEDS ORDERED: MORPHINE SULFATE 4 MG/ML VIAL. IV PRN (23:30)
[2020-04-02] MEDS ORDERED: IV NORMAL SALINE 1000ML BAG 1,000 ML IV ONE (23:30)
[2020-04-02] MEDS ORDERED: POTASSIUM CHLORIDE 20 MEQ TABLET.ER. PO ONE (23:30)
[2020-04-02] MEDS ORDERED: ONDANSETRON PF 4 MG/2 ML VIAL. IV PRN (23:30)
[2020-04-03 00:45] VITALS: BP 135/84
--- NOTE | 2020-04-03 01:35 | EKG ---
[facility] [address] [place] [address] Test Date: 2020-04-02 Test Time: 21:39:37 Pat Name: BOZENA NARANJO Department: Room: Gender: M Ad Operations Specialist: : [id number] Requested By: KAVYA ALEJO Order Number: [id number] Reading MD: Measurements Intervals [place] Rate: 110 P: -126 [place]: 118 QRS: 18 QRSD: 122 T: -34 QT: 328 QTc: 449 Interpretive Statements SINUS TACHYCARDIA INCOMPLETE RIGHT BUNDLE BRANCH BLOCK RVH WITH REPOLARIZATION ABNORMALITY QRS(T) CONTOUR ABNORMALITY CONSIDER ANTEROLATERAL MYOCARDIAL DAMAGE ABNORMAL ECG RI6.01 No previous ECG available for comparison
[2020-04-03 02:53] VITALS: BP 101/57
[2020-04-03 07:00] VITALS: BP 119/71
--- NOTE | 2020-04-03 08:12 | PDOC1 ---
History and Physical Date of Admission Date of Admission DATE: 04/03/20 TIME: 07:51 Identification/Chief Complaint Chief Complaint Chest pain Source Source: Chart review, Patient History of Present Illness History of Present Illness Patient 58-year-old male with past medical history CAD with stents, who presents to the ER with complaints of left-sided chest pain that started around 2 PM. Symptoms started yesterday as he was trying to install his toilet. He reports his pain as sharp, 5/10. He also reports some associated lightheadedness. He took 2 nitro paste at home without significant improvement, so came to the ER. 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 Will admit patient for further medical management with cardiology consult. Past Medical History Cardiovascular: CAD, HTN, Hyperlipidemia Past Surgical History Past Surgical History: Other Family History Family History: Coronary Artery Disease, Stroke Social History Smoke: No ALCOHOL: occassional Drugs: None Current Problem List Problem List Problems Medical Problems: (1) SVT (supraventricular tachycardia) Status: Acute (2) Unstable angina pectoris Status: Acute Current Medications Current Medications Current Medications Aspirin (Aspirin Chewable) 324 mg 1X ONCE PO Last administered on 04/02/20at 22:05; Start 04/02/20 at 22:30; Stop 04/02/20 at 22:31; Status DC Nitroglycerin (Nitrostat) 0.4 mg PRN Q5MIN PRN SL CP RATING > 1/10 Last administered on 04/02/20at 22:06; Start 04/02/20 at 22:00; Stop 04/03/20 at 21:59 Fentanyl Citrate (Fentanyl 2ml Vial) 25 mcg PRN Q15MIN PRN IV PAIN GREATER THAN 3/10 Last administered on 04/02/20at 22:06; Start 04/02/20 at 22:00; Stop 04/03/20 at 21:59 Sodium Chloride 1,000 ml @ 1,000 mls/hr 1X ONCE IV Last administered on 04/02/20at 23:10; Start 04/02/20 at 23:30; Stop 04/03/20 at 00:29; Status DC Potassium Chloride (Klor-Con) 40 meq 1X ONCE PO Last administered on 04/02/20at 23:09; Start 04/02/20 at 23:30; Stop 04/02/20 at 23:31; Status DC Ondansetron HCl (Zofran) 4 mg PRN Q8HRS PRN IV NAUSEA/VOMITING 1ST CHOICE; Start 04/02/20 at 23:30; Stop 04/03/20 at 23:29 Morphine Sulfate (Morphine Sulfate) 4 mg PRN Q2HR PRN IV SEVERE PAIN 7-10; Start 04/02/20 at 23:30; Stop 04/03/20 at 23:29 Nitroglycerin (Nitrostat) 0.4 mg PRN Q5MIN PRN SL CHEST PAIN; Start 04/02/20 at 23:30; Stop 04/03/20 at 23:29 Active Scripts Active Reported Metoprolol Tartrate 50 Mg Tablet 1 Tab PO BID Lisinopril-Hctz 20-12.5 Mg Tab (Lisinopril/Hydrochlorothiazide) 1 Each Tablet 1 Tab PO DAILY Simvastatin 40 Mg Tablet 1 Tab PO QHS Hydrocodone-Apap 7.5-325 (Hydrocodone Bit/Acetaminophen) 1 Tab Tablet 1 Tab PO PRN Q6HRS PRN NITROGLYCERIN SubLingual (Nitroglycerin) 0.4 Mg Tab.subl 0.4 Mg SL PRN Q5MIN PRN Aspirin 81 Mg Tab.chew 81 Mg PO DAILY Vitamin C (Ascorbic Acid) 500 Mg Capsule.er 500 Mg PO DAILY Multivitamins (Multivitamin) 1 Each Tablet 1 Each PO DAILY Clopidogrel (Clopidogrel Bisulfate) 75 Mg Tablet 75 Mg PO DAILY Fish Oil ([place]-3 Fatty Acids) 500 Mg Capsule. 4,000 Mg PO BID Vitamin D-3 (Cholecalciferol (Vitamin D3)) 2,000 Unit Capsule 2,000 Unit PO DAILY Gemfibrozil 600 Mg Tablet 600 Mg PO BID Cyclobenzaprine Hcl 10 Mg Tablet 10 Mg PO Q8HRS PRN Xanax (Alprazolam) 0.5 Mg Tablet 0.5 Mg PO PRN BID PRN Pantoprazole Sodium 20 Mg Tablet. 20 Mg PO DAILY Allergies Allergies: Coded Allergies: tramadol (Verified Adverse Reaction, Intermediate, "Heart feels funny" per patient, 01/26/19) ROS Review of System GENERAL: No history of weight change, weakness or fevers. SKIN: No bruising, hair changes or rashes. EYES: No blurred, double or loss of vision. NOSE AND THROAT: No history of nosebleeds, hoarseness or sore throat. HEART: Chest pain. Denies palpitations. LUNGS: Denies cough, hemoptysis, wheezing or shortness of breath. GASTROINTESTINAL: Denies nausea, vomiting, abdominal pain. GENITOURINARY: Denies dysuria, frequency, urgency, hematuria. NEUROLOGIC: Dizziness. Denies history of numbness, tingling, tremor or weakness. PSYCHIATRIC: Denies anxiety, denies depression. ENDOCRINE: No history of heat or cold intolerance, polyuria or polydipsia. EXTREMITIES: Denies muscle weakness, joint pain, pain on walking or stiffness. Physical Exam Physical Exam General: Alert, Oriented X3, Cooperative, No acute distress HEENT: PERRLA, EOMI Lungs: Clear to auscultation, Normal air movement Heart: RRR, no murmurs Cardiovascular: S1, S2 Abdomen: Normal bowel sounds, Soft, No tenderness Extremities: No clubbing, No cyanosis Skin: No rashes, No significant lesion Neuro: Normal speech, Normal tone, Sensation intact Psych/Mental Status: Mental status NL, Mood NL Vitals Vitals Vital Signs Date Time Temp Pulse Resp B/P (MAP) Pulse Ox O2 Delivery O2 Flow Rate FiO2 04/03/20 02:53 98.6 73 16 101/57 (72) 97 Room Air 98.6 Labs Labs Laboratory Tests Test 04/02/20 21:44 04/03/20 00:35 White Blood Count 9.5 x10^3/uL (4.0-11.0) Red Blood Count 4.36 x10^6/uL (4.30-5.70) Hemoglobin 14.0 g/dL (13.0-17.5) Hematocrit 40.4 % (39.0-53.0) Mean Corpuscular Volume 93 fL (79-100) Mean Corpuscular Hemoglobin 32 pg (25-35) Mean Corpuscular Hemoglobin Concent 35 g/dL (31-37) Red Cell Distribution Width 13.4 % (11.5-14.5) Platelet Count 342 x10^3/uL (140-400) Neutrophils (%) (Auto) 61 % (31-73) Lymphocytes (%) (Auto) 26 % (24-48) Monocytes (%) (Auto) 11 % (0-9) Eosinophils (%) (Auto) 1 % (0-3) Basophils (%) (Auto) 1 % (0-3) Neutrophils # (Auto) 5.8 x10^3/uL (1.8-7.7) Lymphocytes # (Auto) 2.5 x10^3/uL (1.0-4.8) Monocytes # (Auto) 1.0 x10^3/uL (0.0-1.1) Eosinophils # (Auto) 0.1 x10^3/uL (0.0-0.7) Basophils # (Auto) 0.1 x10^3/uL (0.0-0.2) Prothrombin Time 14.5 SEC (11.7-14.0) Prothromb Time International Ratio 1.2 (0.8-1.1) Sodium Level 132 mmol/L (136-145) Potassium Level 3.2 mmol/L (3.5-5.1) Chloride Level 92 mmol/L (98-107) Carbon Dioxide Level 28 mmol/L (21-32) Anion Gap 12 (6-14) Blood Urea Nitrogen 12 mg/dL (8-26) Creatinine 1.0 mg/dL (0.7-1.3) Estimated GFR (Cockcroft-Gault) 76.0 BUN/Creatinine Ratio 12 (6-20) Glucose Level 122 mg/dL (70-99) Calcium Level 9.2 mg/dL (8.5-10.1) Magnesium Level 2.1 mg/dL (1.8-2.4) Total Bilirubin 0.5 mg/dL (0.2-1.0) Aspartate Amino Transf (AST/SGOT) 34 U/L (15-37) Alanine Aminotransferase (ALT/SGPT) 62 U/L (16-63) Alkaline Phosphatase 75 U/L (46-116) Troponin I Quantitative < 0.017 ng/mL (0.000-0.055) < 0.017 ng/mL (0.000-0.055) UM-Vif-V-Type Natriuretic Peptide 27 pg/mL (0-124) Total Protein 8.1 g/dL (6.4-8.2) Albumin 4.5 g/dL (3.4-5.0) Albumin/Globulin Ratio 1.3 (1.0-1.7) Laboratory Tests Test 04/02/20 21:44 1/7/21 00:35 White Blood Count 9.5 x10^3/uL (4.0-11.0) Red Blood Count 4.36 x10^6/uL (4.30-5.70) Hemoglobin 14.0 g/dL (13.0-17.5) Hematocrit 40.4 % (39.0-53.0) Mean Corpuscular Volume 93 fL (79-100) Mean Corpuscular Hemoglobin 32 pg (25-35) Mean Corpuscular Hemoglobin Concent 35 g/dL (31-37) Red Cell Distribution Width 13.4 % (11.5-14.5) Platelet Count 342 x10^3/uL (140-400) Neutrophils (%) (Auto) 61 % (31-73) Lymphocytes (%) (Auto) 26 % (24-48) Monocytes (%) (Auto) 11 % (0-9) Eosinophils (%) (Auto) 1 % (0-3) Basophils (%) (Auto) 1 % (0-3) Neutrophils # (Auto) 5.8 x10^3/uL (1.8-7.7) Lymphocytes # (Auto) 2.5 x10^3/uL (1.0-4.8) Monocytes # (Auto) 1.0 x10^3/uL (0.0-1.1) Eosinophils # (Auto) 0.1 x10^3/uL (0.0-0.7) Basophils # (Auto) 0.1 x10^3/uL (0.0-0.2) Prothrombin Time 14.5 SEC (11.7-14.0) Prothromb Time International Ratio 1.2 (0.8-1.1) Sodium Level 132 mmol/L (136-145) Potassium Level 3.2 mmol/L (3.5-5.1) Chloride Level 92 mmol/L (98-107) Carbon Dioxide Level 28 mmol/L (21-32) Anion Gap 12 (6-14) Blood Urea Nitrogen 12 mg/dL (8-26) Creatinine 1.0 mg/dL (0.7-1.3) Estimated GFR (Cockcroft-Gault) 76.0 BUN/Creatinine Ratio 12 (6-20) Glucose Level 122 mg/dL (70-99) Calcium Level 9.2 mg/dL (8.5-10.1) Magnesium Level 2.1 mg/dL (1.8-2.4) Total Bilirubin 0.5 mg/dL (0.2-1.0) Aspartate Amino Transf (AST/SGOT) 34 U/L (15-37) Alanine Aminotransferase (ALT/SGPT) 62 U/L (16-63) Alkaline Phosphatase 75 U/L (46-116) Troponin I Quantitative < 0.017 ng/mL (0.000-0.055) < 0.017 ng/mL (0.000-0.055) YK-Ohi-Y-Type Natriuretic Peptide 27 pg/mL (0-124) Total Protein 8.1 g/dL (6.4-8.2) Albumin 4.5 g/dL (3.4-5.0) Albumin/Globulin Ratio 1.3 (1.0-1.7) Images Images INDICATION: Reason: chest pain / Spl. Instructions: / History: COMPARISON: April 2015 FINDINGS: Single view of chest obtained. Hypoexpanded exam. Left lung base is obscured by the overlying cardiac silhouette. No definite consolidation elsewhere in the lungs. IMPRESSION: Hypoexpanded examination without definite focal airspace consolidation. VTE Prophylaxis Ordered VTE Prophylaxis Devices: No VTE Pharmacological Prophylaxi: Yes Assessment/Plan Assessment/Plan Chest pain Unstable angina Hyperkalemia Hyponatremia Plan: Troponins negative x2, continue to trend Consultations placed to cardiology Received aspirin 324 mg in the ED; continue daily aspirin and statin. Morphine, nitroglycerin as needed Justifications for Admission Other Justification LISSET MONTES MD Apr 03, 2020 08:12
[2020-04-03] MEDS ORDERED: NITROGLYCERIN SUBLINGUAL 0.4 MG BOTTLE OF 25. SL PRN (08:15)
[2020-04-03] MEDS ORDERED: HYDROcodone/APAP 7.5/325MG 1 TAB TABLET PO PRN (08:15)
[2020-04-03] MEDS ORDERED: ZOLPIDEM 5 MG TABLET. PO PRN (08:15)
[2020-04-03] MEDS ORDERED: MAG HYDROX/ALUMINUM HYD/SIMETH 30 ML ORAL.SUSP PO PRN (08:15)
[2020-04-03] MEDS ORDERED: ALPRAZolam 0.5 MG TABLET PO PRN (08:15)
[2020-04-03] MEDS ORDERED: CYCLOBENZAPRINE 10 MG TABLET. PO PRN (08:15)
[2020-04-03] MEDS ORDERED: BISACODYL 10 MG SUPP.RECT. PR PRN (08:15)
[2020-04-03] MEDS ORDERED: CALCIUM CARBONATE 500 MG TAB.CHEW PO PRN (08:15)
[2020-04-03] MEDS ORDERED: MAGNESIUM HYDROXIDE 2,400 MG/30 ML ORAL.SUSP. PO PRN (08:15)
[2020-04-03] MEDS ORDERED: ACETAMINOPHEN 325 MG TABLET. PO PRN (08:15)
[2020-04-03] MEDS ORDERED: ONDANSETRON PF 4 MG/2 ML VIAL. IVP PRN (08:15)
[2020-04-03] MEDS ORDERED: MORPHINE SULFATE 2 MG/ML VIAL. IV PRN (08:15)
[2020-04-03 08:30] LABS: CALCIUM 8.5 mg/dL (8.5-10.1); CREATININE 0.8 mg/dL (0.7-1.3); GFR 98.3; POTASSIUM 3.8 mmol/L (3.5-5.1)
[2020-04-03 08:35] LABS: BASO % 1 % (0-3); EOS # 0.1 x10^3/uL (0.0-0.7); EOS % 2 % (0-3); HEMATOCRIT 38.4 % (39.0-53.0); HEMOGLOBIN 13.4 g/dL (13.0-17.5); LYMPH # 2.5 x10^3/uL (1.0-4.8); LYMPH % 40 % (24-48); MEAN CORPUSCULAR HEMOGLOBIN 32 pg (25-35); MEAN CORPUSCULAR HGB CONC 35 g/dL (31-37); MEAN CORPUSCULAR VOLUME 92 fL (79-100); MONO # 0.6 x10^3/uL (0.0-1.1); MONO % 10 % (0-9); NEUT # 2.9 x10^3/uL (1.8-7.7); NEUT % 47 % (31-73); PLATELET COUNT 303 x10^3/uL (140-400); RED BLOOD COUNT 4.16 x10^6/uL (4.30-5.70); RED CELL DISTRIBUTION WIDTH 13.4 % (11.5-14.5); WHITE BLOOD COUNT 6.2 x10^3/uL (4.0-11.0)
[2020-04-03] MEDS ORDERED: ENOXAPARIN 40 MG/0.4 ML SYRINGE. SQ SCH (09:00)
[2020-04-03] MEDS ORDERED: OMEGA-3 FATTY ACIDS/FISH OIL 1,000 MG CAPSULE. PO SCH (09:00)
[2020-04-03] MEDS ORDERED: METOPROLOL TART IMMED RELEASE 50 MG TABLET. PO SCH ×2 (09:00→21:00)
[2020-04-03] MEDS ORDERED: CLOPIDOGREL BISULFATE 75 MG TABLET PO SCH (09:00)
[2020-04-03] MEDS ORDERED: GEMFIBROZIL 600 MG TABLET. PO SCH (09:00)
[2020-04-03] MEDS ORDERED: ASPIRIN CHEWABLE 81 MG TABLET. PO SCH (09:00)
[2020-04-03] MEDS ORDERED: LISINOPRIL 20 MG TABLET PO SCH (09:00)
[2020-04-03] MEDS ORDERED: hydroCHLOROthiazide 12.5 MG CAPSULE PO SCH (09:00)
--- NOTE | 2020-04-03 09:13 | PDOC2 ---
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 Chest discomfort is sharp at first felt his heart racing then heaviness. No exertional chest pain or SOA. . He was fixing his toilet then start having palpitations then feeling weak. Some SOA but no n/v. No recent falls or injury. No recent infection. No coivd exposure. Denies passing out. He just basically felt weak and felt that his heart was racing. Reports he has been complaint with his medications and denies any stimulants, energy drinks or Alcohol binging. PAST MEDICAL HISTORY Cardiovascular: CAD (Coronary artery disease, s/p PCI/ELVIRA to diagonal branch of LAD in 2012, PCI/ELVIRA to LAD 05/08/2015, [facility] on 01/07/17 showing patent stents with no new obstructive disease), HTN, Hyperlipidemia Pulmonary: No pertinent hx CENTRAL NERVOUS SYSTEM: Other (no pertinent history) GI: GERD Psych: Anxiety Musculoskeletal: low back pain, Osteoarthritis Rheumatologic: No pertinent hx Infectious disease: No pertinent hx Renal/: No pertinent hx PAST SURGICAL HISTORY Past Surgical History: Other (PCI, septal surgery) FAMILY HISTORY Family History: Coronary Artery Disease (father) SOCIAL HISTORY Smoke: No ALCOHOL: none Drugs: None Lives: with Family CURRENT MEDICATIONS CURRENT MEDICATIONS Current Medications Medications (Trade) Dose Ordered Sig/Donte Route PRN Reason Start Time Stop Time Status Last Admin Dose Admin Aspirin (Aspirin Chewable) 324 mg 1X ONCE PO 04/02/20 22:30 04/02/20 22:31 DC 04/02/20 22:05 Nitroglycerin (Nitrostat) 0.4 mg PRN Q5MIN PRN SL CP RATING > 1/10 04/02/20 22:00 04/03/20 21:59 04/02/20 22:06 Fentanyl Citrate (Fentanyl 2ml Vial) 25 mcg PRN Q15MIN PRN IV PAIN GREATER THAN 3/10 04/02/20 22:00 04/03/20 21:59 04/02/20 22:06 Sodium Chloride 1,000 ml @ 1,000 mls/hr 1X ONCE IV 04/02/20 23:30 04/03/20 00:29 DC 04/02/20 23:10 Potassium Chloride (Klor-Con) 40 meq 1X ONCE PO 04/02/20 23:30 04/02/20 23:31 DC 04/02/20 23:09 Aspirin (Aspirin Chewable) 81 mg DAILY PO 04/03/20 09:00 04/03/20 08:56 Clopidogrel Bisulfate (Plavix) 75 mg DAILY PO 04/03/20 09:00 04/03/20 08:57 Gemfibrozil (Lopid) 600 mg BID PO 04/03/20 09:00 04/03/20 08:57 Metoprolol Tartrate (Lopressor) 50 mg BID PO 04/03/20 09:00 04/03/20 08:58 Lisinopril (Prinivil) 20 mg DAILY PO 04/03/20 09:00 04/03/20 08:57 Fish Oil (Fish Oil) 4,000 mg BID PO 04/03/20 09:00 04/03/20 08:58 Enoxaparin Sodium (Lovenox 40mg Syringe) 40 mg Q24H SQ 04/03/20 09:00 04/03/20 08:58 Hydrochlorothiazide (Microzide) 12.5 mg DAILY PO 04/03/20 09:00 04/03/20 08:57 ALLERGIES ALLERGIES: Coded Allergies: tramadol (Verified Adverse Reaction, Intermediate, "Heart feels funny" per patient, 01/26/19) ROS Review of System 14 point ROS evauated with pertinent positives noted per HPI PHYSICAL EXAM General: Alert, Oriented X3, Cooperative, No acute distress HEENT: Atraumatic, Mucous membr. moist/pink Lungs: Clear to auscultation, Normal air movement Heart: Regular rate (SR), Normal S1, Normal S2, Other (2/6 systolic murmur to LLS border) Abdomen: Soft, No tenderness Extremities: No cyanosis, No edema Skin: No breakdown, No significant lesion Neuro: Normal speech, Sensation intact Psych/Mental Status: Mental status NL, Mood NL MUSCULOSKELETAL: Osteoarthritic changes both hands VITALS/I&O VITALS/I&O: Vital Signs Date Time Temp Pulse Resp B/P (MAP) Pulse Ox O2 Delivery O2 Flow Rate FiO2 04/03/20 08:58 80 04/03/20 02:53 98.6 16 101/57 (72) 97 Room Air 98.6 I & O 04/02/20 04/02/20 04/03/20 15:00 23:00 07:00 Intake Total 200 ml Balance 200 ml LABS Lab: Laboratory Tests Test 04/02/20 21:44 04/03/20 00:35 04/03/20 07:27 White Blood Count 9.5 x10^3/uL (4.0-11.0) 6.2 x10^3/uL (4.0-11.0) Red Blood Count 4.36 x10^6/uL (4.30-5.70) 4.16 x10^6/uL (4.30-5.70) L Hemoglobin 14.0 g/dL (13.0-17.5) 13.4 g/dL (13.0-17.5) Hematocrit 40.4 % (39.0-53.0) 38.4 % (39.0-53.0) L Mean Corpuscular Volume 93 fL (79-100) 92 fL (79-100) Mean Corpuscular Hemoglobin 32 pg (25-35) 32 pg (25-35) Mean Corpuscular Hemoglobin Concent 35 g/dL (31-37) 35 g/dL (31-37) Red Cell Distribution Width 13.4 % (11.5-14.5) 13.4 % (11.5-14.5) Platelet Count 342 x10^3/uL (140-400) 303 x10^3/uL (140-400) Neutrophils (%) (Auto) 61 % (31-73) 47 % (31-73) Lymphocytes (%) (Auto) 26 % (24-48) 40 % (24-48) Monocytes (%) (Auto) 11 % (0-9) H 10 % (0-9) H Eosinophils (%) (Auto) 1 % (0-3) 2 % (0-3) Basophils (%) (Auto) 1 % (0-3) 1 % (0-3) Neutrophils # (Auto) 5.8 x10^3/uL (1.8-7.7) 2.9 x10^3/uL (1.8-7.7) Lymphocytes # (Auto) 2.5 x10^3/uL (1.0-4.8) 2.5 x10^3/uL (1.0-4.8) Monocytes # (Auto) 1.0 x10^3/uL (0.0-1.1) 0.6 x10^3/uL (0.0-1.1) Eosinophils # (Auto) 0.1 x10^3/uL (0.0-0.7) 0.1 x10^3/uL (0.0-0.7) Basophils # (Auto) 0.1 x10^3/uL (0.0-0.2) 0.0 x10^3/uL (0.0-0.2) Prothrombin Time 14.5 SEC (11.7-14.0) H Prothrombin Time INR 1.2 (0.8-1.1) H Sodium Level 132 mmol/L (136-145) L 135 mmol/L (136-145) L Potassium Level 3.2 mmol/L (3.5-5.1) L 3.8 mmol/L (3.5-5.1) Chloride Level 92 mmol/L (98-107) L 100 mmol/L (98-107) Carbon Dioxide Level 28 mmol/L (21-32) 28 mmol/L (21-32) Anion Gap 12 (6-14) 7 (6-14) Blood Urea Nitrogen 12 mg/dL (8-26) 11 mg/dL (8-26) Creatinine 1.0 mg/dL (0.7-1.3) 0.8 mg/dL (0.7-1.3) Estimated GFR (Cockcroft-Gault) 76.0 98.3 BUN/Creatinine Ratio 12 (6-20) Glucose Level 122 mg/dL (70-99) H 91 mg/dL (70-99) Calcium Level 9.2 mg/dL (8.5-10.1) 8.5 mg/dL (8.5-10.1) Magnesium Level 2.1 mg/dL (1.8-2.4) Total Bilirubin 0.5 mg/dL (0.2-1.0) Aspartate Amino Transferase (AST) 34 U/L (15-37) Alanine Aminotransferase (ALT) 62 U/L (16-63) Alkaline Phosphatase 75 U/L (46-116) Troponin I Quantitative < 0.017 ng/mL (0.000-0.055) < 0.017 ng/mL (0.000-0.055) < 0.017 ng/mL (0.000-0.055) CN-Fur-M-Type Natriuretic Peptide 27 pg/mL (0-124) Total Protein 8.1 g/dL (6.4-8.2) Albumin 4.5 g/dL (3.4-5.0) Albumin/Globulin Ratio 1.3 (1.0-1.7) Laboratory Tests 04/02/20 21:44 04/03/20 07:27 Laboratory Tests 04/02/20 21:44 04/03/20 07:27 ECHOCARDIOGRAM ECHOCARDIOGRAM <Conclusion> The left ventricle is normal size. The left ventricular systolic function is normal and the ejection fraction is within normal range. The Ejection Fraction is 60-65%. There is borderline to mild concentric left ventricular hypertrophy. There is no significant aortic valvular stenosis. Doppler and Color Flow revealed trace aortic regurgitation. Doppler and Color-flow revealed trace mitral regurgitation. Doppler and Color Flow revealed trace tricuspid regurgitation. DATE: 02/01/18 1337 HEART CATH HEART CATH FINDINGS 1. Hemodynamics: Left ventricular end-diastolic pressure of 15 mmHg. No pullback gradient across the aortic valve. 2. Left ventriculography: Normal left ventricle systolic function with ejectio n fraction estimated at 65-70%. No significant mitral regurgitation seen. 3. Coronary angiography: a. The left main coronary artery arose from the left sinus of Valsalva, gave rise to the left anterior descending and left circumflex arteries and did not show any significant stenosis. b. The left anterior descending artery showed patent stents in the midsegment of LAD and the proximal segment of the diagonal branch. c. The left circumflex artery did not show any significant stenosis. d. The right coronary artery was a large and dominant vessel arising from the right sinus of Valsalva that showed 20% stenosis in the midsegment. Conclusion 1. No significant coronary artery disease with patent previously placed stents in LAD and diagonal branch 2. Normal left ventricle systolic function with ejection fraction estimated at 65-70%. Recommendations Medical Therapy DATE: 01/26/19 0915 ASSESSMENT/PLAN ASSESSMENT/PLAN 1. Chest pain: due to palpitations trops nml 2. PSVT 3. Chronic RBBB 4. Hypokalemia 5. CAD; prior stents, last [facility] 01/2019 patent stents no intervention. on plavix 6. HTN: controlled 7. HLP Recommendations K replaced. TTE check TSH and lipids Secondary prevention measures MCOT and will consider if antiarrhythmic is warranted as an outpt Stop HCTZ, decreasing lisinopril and increasing metoprolol Follow up in office as scheduled ILLLY GARVEY MD 04/03/20 1659: CARDIAC CONSULT ASSESSMENT/PLAN ASSESSMENT/PLAN Patient seen and examined. Agree with ILLUMINATOR's assessment and plan. Chest pain with atypical features. Myocardial infarction will be ruled out. Cardiac catheterization 01/2019 showed patent stents in LAD/diagonal. Check 2D echo to assess LV function and rule out wall motion abnormalities. Plan for outpatient event monitor to assess arrhythmia burden. Thank you for your consultation MOISES SO APRN Apr 03, 2020 09:13 LILLY GARVEY MD Apr 03, 2020 16:59
[2020-04-03 09:48] LABS: CHOLESTEROL/HDL RATIO 2.9
[2020-04-03 11:00] VITALS: BP 132/80
--- NOTE | 2020-04-03 15:24 | NUR ---
SS following for discharge planning. SS reviewed pt chart and discussed with pt RN. Pt is from home with spouse and is currently on room air. Cardiology following. COVID19 negative. SS will continue to follow for discharge planning.
[2020-04-03] MEDS ORDERED: METO50TA6 PO (17:01)
[2020-04-03] MEDS ORDERED: LISI-130 PO (17:01)
--- NOTE | 2020-04-03 17:04 | PDOC3 ---
Discharge Summary Visit Information Date of Admission: Apr 03, 2020 Date of Discharge: Apr 03, 2020 Final Diagnosis Problems Medical Problems: (1) SVT (supraventricular tachycardia) Status: Acute (2) Unstable angina pectoris Status: Acute Brief Hospital Course Allergies Allergies Coded Allergies Type Severity Reaction Last Updated Verified tramadol Adverse Reaction Intermediate "Heart feels funny" per patient 01/26/19 Yes Vital Signs Vital Signs Date Time Temp Pulse Resp B/P (MAP) Pulse Ox O2 Delivery O2 Flow Rate FiO2 04/03/20 11:00 98.8 65 16 132/80 (97) 98 Room Air 98.8 Lab Results Laboratory Tests Test 04/02/20 21:44 04/03/20 00:35 04/03/20 07:27 White Blood Count 9.5 x10^3/uL (4.0-11.0) 6.2 x10^3/uL (4.0-11.0) Red Blood Count 4.36 x10^6/uL (4.30-5.70) 4.16 x10^6/uL (4.30-5.70) Hemoglobin 14.0 g/dL (13.0-17.5) 13.4 g/dL (13.0-17.5) Hematocrit 40.4 % (39.0-53.0) 38.4 % (39.0-53.0) Mean Corpuscular Volume 93 fL (79-100) 92 fL (79-100) Mean Corpuscular Hemoglobin 32 pg (25-35) 32 pg (25-35) Mean Corpuscular Hemoglobin Concent 35 g/dL (31-37) 35 g/dL (31-37) Red Cell Distribution Width 13.4 % (11.5-14.5) 13.4 % (11.5-14.5) Platelet Count 342 x10^3/uL (140-400) 303 x10^3/uL (140-400) Neutrophils (%) (Auto) 61 % (31-73) 47 % (31-73) Lymphocytes (%) (Auto) 26 % (24-48) 40 % (24-48) Monocytes (%) (Auto) 11 % (0-9) 10 % (0-9) Eosinophils (%) (Auto) 1 % (0-3) 2 % (0-3) Basophils (%) (Auto) 1 % (0-3) 1 % (0-3) Neutrophils # (Auto) 5.8 x10^3/uL (1.8-7.7) 2.9 x10^3/uL (1.8-7.7) Lymphocytes # (Auto) 2.5 x10^3/uL (1.0-4.8) 2.5 x10^3/uL (1.0-4.8) Monocytes # (Auto) 1.0 x10^3/uL (0.0-1.1) 0.6 x10^3/uL (0.0-1.1) Eosinophils # (Auto) 0.1 x10^3/uL (0.0-0.7) 0.1 x10^3/uL (0.0-0.7) Basophils # (Auto) 0.1 x10^3/uL (0.0-0.2) 0.0 x10^3/uL (0.0-0.2) Prothrombin Time 14.5 SEC (11.7-14.0) Prothromb Time International Ratio 1.2 (0.8-1.1) Sodium Level 132 mmol/L (136-145) 135 mmol/L (136-145) Potassium Level 3.2 mmol/L (3.5-5.1) 3.8 mmol/L (3.5-5.1) Chloride Level 92 mmol/L (98-107) 100 mmol/L (98-107) Carbon Dioxide Level 28 mmol/L (21-32) 28 mmol/L (21-32) Anion Gap 12 (6-14) 7 (6-14) Blood Urea Nitrogen 12 mg/dL (8-26) 11 mg/dL (8-26) Creatinine 1.0 mg/dL (0.7-1.3) 0.8 mg/dL (0.7-1.3) Estimated GFR (Cockcroft-Gault) 76.0 98.3 BUN/Creatinine Ratio 12 (6-20) Glucose Level 122 mg/dL (70-99) 91 mg/dL (70-99) Calcium Level 9.2 mg/dL (8.5-10.1) 8.5 mg/dL (8.5-10.1) Magnesium Level 2.1 mg/dL (1.8-2.4) Total Bilirubin 0.5 mg/dL (0.2-1.0) Aspartate Amino Transf (AST/SGOT) 34 U/L (15-37) Alanine Aminotransferase (ALT/SGPT) 62 U/L (16-63) Alkaline Phosphatase 75 U/L (46-116) Troponin I Quantitative < 0.017 ng/mL (0.000-0.055) < 0.017 ng/mL (0.000-0.055) < 0.017 ng/mL (0.000-0.055) WK-Kay-N-Type Natriuretic Peptide 27 pg/mL (0-124) Total Protein 8.1 g/dL (6.4-8.2) Albumin 4.5 g/dL (3.4-5.0) Albumin/Globulin Ratio 1.3 (1.0-1.7) Triglycerides Level 51 mg/dL (0-150) Cholesterol Level 106 mg/dL (0-200) LDL Cholesterol, Calculated 59 mg/dL (0-100) VLDL Cholesterol, Calculated 10 mg/dL (0-40) Non-HDL Cholesterol Calculated 69 mg/dL (0-129) HDL Cholesterol 37 mg/dL (40-60) Cholesterol/HDL Ratio 2.9 Thyroid Stimulating Hormone (TSH) 1.781 uIU/mL (0.358-3.74) Laboratory Tests Test 04/02/20 21:44 04/03/20 00:35 04/03/20 07:27 White Blood Count 9.5 x10^3/uL (4.0-11.0) 6.2 x10^3/uL (4.0-11.0) Red Blood Count 4.36 x10^6/uL (4.30-5.70) 4.16 x10^6/uL (4.30-5.70) Hemoglobin 14.0 g/dL (13.0-17.5) 13.4 g/dL (13.0-17.5) Hematocrit 40.4 % (39.0-53.0) 38.4 % (39.0-53.0) Mean Corpuscular Volume 93 fL (79-100) 92 fL (79-100) Mean Corpuscular Hemoglobin 32 pg (25-35) 32 pg (25-35) Mean Corpuscular Hemoglobin Concent 35 g/dL (31-37) 35 g/dL (31-37) Red Cell Distribution Width 13.4 % (11.5-14.5) 13.4 % (11.5-14.5) Platelet Count 342 x10^3/uL (140-400) 303 x10^3/uL (140-400) Neutrophils (%) (Auto) 61 % (31-73) 47 % (31-73) Lymphocytes (%) (Auto) 26 % (24-48) 40 % (24-48) Monocytes (%) (Auto) 11 % (0-9) 10 % (0-9) Eosinophils (%) (Auto) 1 % (0-3) 2 % (0-3) Basophils (%) (Auto) 1 % (0-3) 1 % (0-3) Neutrophils # (Auto) 5.8 x10^3/uL (1.8-7.7) 2.9 x10^3/uL (1.8-7.7) Lymphocytes # (Auto) 2.5 x10^3/uL (1.0-4.8) 2.5 x10^3/uL (1.0-4.8) Monocytes # (Auto) 1.0 x10^3/uL (0.0-1.1) 0.6 x10^3/uL (0.0-1.1) Eosinophils # (Auto) 0.1 x10^3/uL (0.0-0.7) 0.1 x10^3/uL (0.0-0.7) Basophils # (Auto) 0.1 x10^3/uL (0.0-0.2) 0.0 x10^3/uL (0.0-0.2) Prothrombin Time 14.5 SEC (11.7-14.0) Prothromb Time International Ratio 1.2 (0.8-1.1) Sodium Level 132 mmol/L (136-145) 135 mmol/L (136-145) Potassium Level 3.2 mmol/L (3.5-5.1) 3.8 mmol/L (3.5-5.1) Chloride Level 92 mmol/L (98-107) 100 mmol/L (98-107) Carbon Dioxide Level 28 mmol/L (21-32) 28 mmol/L (21-32) Anion Gap 12 (6-14) 7 (6-14) Blood Urea Nitrogen 12 mg/dL (8-26) 11 mg/dL (8-26) Creatinine 1.0 mg/dL (0.7-1.3) 0.8 mg/dL (0.7-1.3) Estimated GFR (Cockcroft-Gault) 76.0 98.3 BUN/Creatinine Ratio 12 (6-20) Glucose Level 122 mg/dL (70-99) 91 mg/dL (70-99) Calcium Level 9.2 mg/dL (8.5-10.1) 8.5 mg/dL (8.5-10.1) Magnesium Level 2.1 mg/dL (1.8-2.4) Total Bilirubin 0.5 mg/dL (0.2-1.0) Aspartate Amino Transf (AST/SGOT) 34 U/L (15-37) Alanine Aminotransferase (ALT/SGPT) 62 U/L (16-63) Alkaline Phosphatase 75 U/L (46-116) Troponin I Quantitative < 0.017 ng/mL (0.000-0.055) < 0.017 ng/mL (0.000-0.055) < 0.017 ng/mL (0.000-0.055) RO-Exi-T-Type Natriuretic Peptide 27 pg/mL (0-124) Total Protein 8.1 g/dL (6.4-8.2) Albumin 4.5 g/dL (3.4-5.0) Albumin/Globulin Ratio 1.3 (1.0-1.7) Triglycerides Level 51 mg/dL (0-150) Cholesterol Level 106 mg/dL (0-200) LDL Cholesterol, Calculated 59 mg/dL (0-100) VLDL Cholesterol, Calculated 10 mg/dL (0-40) Non-HDL Cholesterol Calculated 69 mg/dL (0-129) HDL Cholesterol 37 mg/dL (40-60) Cholesterol/HDL Ratio 2.9 Thyroid Stimulating Hormone (TSH) 1.781 uIU/mL (0.358-3.74) Brief Hospital Course Mr. Griffith is a 59 old male who presented with unstable angina, SVT. He had consultations placed to cardiology. Patient's blood pressure medications were increased and his metoprolol was increased to 75 mg twice daily. Patient was stable for discharge home with outpatient cardiac and PCP follow-up. Discharge Information Condition at Discharge: Improved Follow Up: Weeks Disposition/Orders: D/C to Home Scheduled Ascorbic Acid (Vitamin C) 500 Mg Capsule.er, 500 MG PO DAILY, (Reported) Entered as Reported by: MANINDER ROCKWELL on 01/07/17951 Last Action: HELD on 04/03/20806 by LISSET MONTES MD Aspirin (Aspirin) 81 Mg Tab.chew, 81 MG PO DAILY, (Reported) Entered as Reported by: MANINDER ROCKWELL on 01/07/17951 Last Action: Continued on 04/03/20806 by LISSET MONTES MD Cholecalciferol (Vitamin D3) (Vitamin D-3) 2,000 Unit Capsule, 2,000 UNIT PO DAILY, (Reported) Entered as Reported by: GUILLAUME NARAYAN on 04/30/1332 Last Action: HELD on 04/03/20806 by LISSET MONTES MD Clopidogrel Bisulfate (Clopidogrel) 75 Mg Tablet, 75 MG PO DAILY for TO PREVENT BLOOD CLOTS, #30 Ref 0 (Reported) Entered as Reported by: MANINDER ROCKWELL on 01/07/17951 Last Action: Continued on 04/03/20806 by LISSET MONTES MD Gemfibrozil (Gemfibrozil) 600 Mg Tablet, 600 MG PO BID, (Reported) Entered as Reported by: GUILLAUME NARAYAN on 04/30/1330 Last Action: Continued on 04/03/20806 by LISSET MONTES MD Lisinopril (Lisinopril) 40 Mg Tablet, 10 MG PO DAILY for HTN, #30 Ref 1 Prescribed by: LISSET MONTES MD on 04/03/201700 Metoprolol Tartrate (Metoprolol Tartrate) 50 Mg Tablet, 75 MG PO BID for CAD, #60 Ref 2 Prescribed by: LISSET MONTES MD on 04/03/201700 Multivitamin (Multivitamins) 1 Each Tablet, 1 EACH PO DAILY, (Reported) Entered as Reported by: MANINDER ROCKWELL on 01/07/17951 Last Action: HELD on 04/03/20806 by LISSET MONTES MD Lima-3 Fatty Acids (Fish Oil) 500 Mg Capsule.dr, 4,000 MG PO BID, (Reported) Entered as Reported by: GUILLAUME NARAYAN on 04/30/13831 Last Action: Converted on 04/03/20806 by LISSET MONTES MD Pantoprazole Sodium (Pantoprazole Sodium) 20 Mg Tablet.dr, 20 MG PO DAILY, (Reported) Entered as Reported by: GUILLAUME NARAYAN on 04/30/13829 Last Action: HELD on 04/03/20806 by LISSET MONTES MD Simvastatin (Simvastatin) 40 Mg Tablet, 1 TAB PO QHS for choesterol, #30 Ref 5 (Reported) Entered as Reported by: SANJIV BISHOP on 01/26/19733 Last Action: Continued on 04/03/20806 by LISSET MONTES MD Scheduled PRN Alprazolam (Xanax) 0.5 Mg Tablet, 0.5 MG PO PRN BID PRN for ANXIETY / AGITATION, (Reported) Entered as Reported by: GUILLAUME NARAYAN on 04/30/13829 Last Action: Continued on 04/03/20806 by LISSET MONTES MD Cyclobenzaprine Hcl (Cyclobenzaprine Hcl) 10 Mg Tablet, 10 MG PO Q8HRS PRN for MUSCLE SPASMS, (Reported) Entered as Reported by: GUILLAUME NARAYAN on 04/30/13829 Last Action: Continued on 04/03/20806 by LISSET MONTES MD Hydrocodone Bit/Acetaminophen (Hydrocodone-Apap 7.5-325 ) 1 Tab Tablet, 1 TAB PO PRN Q6HRS PRN for PAIN, Ref 0 (Reported) Entered as Reported by: SANJIV BISHOP on 01/26/19733 Last Action: Continued on 04/03/20806 by LISSET MONTES MD Nitroglycerin (NITROGLYCERIN SubLingual) 0.4 Mg Tab.subl, 0.4 MG SL PRN Q5MIN PRN for CHEST PAIN, (Reported) Entered as Reported by: MANINDER ROCKWELL on 01/07/1752 Last Action: Continued on 04/03/20806 by LISSET OMNTES MD Discontinued Medications Lisinopril/Hydrochlorothiazide (Lisinopril-Hctz 20-12.5 Mg Tab) 1 Each Tablet, 1 TAB PO DAILY for HTN, #30 Ref 5 (Reported) Entered as Reported by: SANJIV BISHOP on 01/26/19733 Last Action: Converted on 04/03/20806 by LISSET MONTES MD Metoprolol Tartrate (Metoprolol Tartrate) 50 Mg Tablet, 1 TAB PO BID for heart, #60 Ref 5 (Reported) Entered as Reported by: SANJIV BISHOP on 01/26/19733 Last Action: Continued on 04/03/20806 by LISSET MONTES MD Justicifation of Admission Dx: Justifications for Admission: Justification of Admission Dx: Yes (Chest pain) LISSET MONTES MD Apr 03, 2020 17:04
--- NOTE | 2020-04-03 17:29 | CARD ---
MR#: [id number] Date of Study: 04/03/2020 Ordering Physician: MOISES SO, Referring Physician: MOISES SO Tech: Dara Thompson [facility] APPROVED REPORT EXAM: Two-dimensional and M-mode echocardiogram with Doppler and color Doppler. Other Information Quality : GoodHR: 71bpm Rhythm : NSR INDICATION CAD Chest Pain RISK FACTORS Hypertension Obesity Hyperlipidemia 2D DIMENSIONS RVDd4.3 (2.9-3.5cm)Left Atrium(2D)4.2 (1.6-4.0cm) IVSd1.4 (0.7-1.1cm)Aortic Root(2D)3.6 (2.0-3.7cm) LVDd5.3 (3.9-5.9cm)PWd1.1 (0.7-1.1cm) IVSs1.6 (0.8-1.2cm)LVDs3.0 (2.5-4.0cm) FS (%) 43.8 %PWs1.6 (0.8-1.2cm) SV100.0 ml Aortic Valve AoV Peak Tunde.112.0cm/sAoV VTI21.0cm AO Peak GR.5.0mmHgLVOT Peak Tunde.106.9cm/s LVOT VTI 21.75cmAO Mean GR.3mmHg Mitral Valve MV E Jjslczhe62.4cm/sMV DECEL [id number] MV A Tyvobhcv30.5cm/sMV TRK16zj E/A Ratio1.1MVA (PHT)4.36cm2 TDI E/Lateral E'6.8E/Medial E'10.2 Pulmonary Valve PV Peak Qaaxpeoy46.4cm/sPV Peak Grad.3mmHg Tricuspid Valve TR P. Tivgklam332ik/sTR Peak Gr.24mmHg LEFT VENTRICLE The left ventricle is normal size. There is borderline to mild concentric left ventricular hypertroph y. The left ventricular systolic function is normal and the ejection fraction is within normal range. Estimated ejection fracrtion 60-65%. There is normal LV segmental wall motion. The left ventricular diastolic function and filling is normal for age. RIGHT VENTRICLE The right ventricle is borderline dilated. There is normal right ventricular wall thickness. The righ t ventricular systolic function is normal. ATRIA The left atrium size is normal. The right atrium size is normal. The interatrial septum is intact wit h no evidence for an atrial septal defect or patent foramen ovale as noted on 2-D or Doppler imaging. AORTIC VALVE The aortic valve is normal in structure and function. Doppler and Color Flow revealed no significant aortic regurgitation. There is no significant aortic valvular stenosis. MITRAL VALVE The mitral valve is normal in structure and function. There is no evidence of mitral valve prolapse. There is no mitral valve stenosis. Doppler and Color-flow revealed mild mitral regurgitation. TRICUSPID VALVE The tricuspid valve is normal in structure and function. Doppler and Color Flow revealed mild tricusp id regurgitation. Estimated PAP 27 mmHg. PULMONIC VALVE The pulmonary valve is normal in structure and function. Doppler and Color Flow revealed no pulmonic valvular regurgitation. GREAT VESSELS The aortic root is normal in size. The ascending aorta is normal in size. The IVC is normal in size a nd collapses >50% with inspiration. PERICARDIAL EFFUSION There is no evidence of significant pericardial effusion. Critical Notification Critical Value: No <Conclusion> The left ventricle is normal size. The left ventricular systolic function is normal and the ejection fraction is within normal range. Estimated ejection fracrtion 60-65%. There is borderline to mild concentric left ventricular hypertrophy. Doppler and Color Flow revealed no significant aortic regurgitation. There is no significant aortic valvular stenosis. Doppler and Color-flow revealed mild mitral regurgitation. Doppler and Color Flow revealed mild tricuspid regurgitation. Estimated PAP 27 mmHg. Signed by : Everett Arzate MD Electronically Approved : 04/03/2020 17:29:28
--- NOTE | 2020-04-03 17:55 | NUR ---
Discharge: Teaching verbal and written. Reviewed medications, follow-up, ECHO, cardiac diet, event monitor, SVT, ect. Patient verbalized understanding. IV removed without complications, catheter tip in tact. All belongings with patient. 2 prescriptions sent to pharmacy per physician.
[2020-04-03] MEDS ORDERED: SIMVASTATIN 40 MG TABLET. PO SCH (21:00)
[2020-04-04] MEDS ORDERED: LISINOPRIL 20 MG TABLET PO SCH (09:00)
== END 2020-04-03 18:49 | disposition home or self-care (01) | DRG 309 ==
LOC: ER 21:29 → 2 SOUTH 23:18
PROVIDERS: ADMIT Internal Medicine; ATTEND Internal Medicine
DX: I47.1 Supraventricular tachycardia (principal); E87.1 Hypo-osmolality and hyponatremia; I25.110 Atherosclerotic heart disease of native coronary artery with unstable angina pectoris; E78.00 Pure hypercholesterolemia, unspecified; E78.5 Hyperlipidemia, unspecified; E87.5 Hyperkalemia; E87.6 Hypokalemia; I10 Essential (primary) hypertension; I45.10 Unspecified right bundle-branch block; Z82.3 Family history of stroke; Z82.49 Family history of ischemic heart disease and other diseases of the circulatory system; Z95.5 Presence of coronary angioplasty implant and graft; F41.9 Anxiety disorder, unspecified; K21.9 Gastro-esophageal reflux disease without esophagitis
CPT/HCPCS: 36415; 71045; 80048; 80053; 80061; 83735; 83880; 84443; 84484; 85025; 85610; 93005; 93306; 96361; 96374; J1650; J3010; J7030; 99285-25; G0378

== ENCOUNTER → 2020-11-13 | Outpatient (CLI) | payer MEDICARE ==
[~2020-11-13] MED LIST changes: +LISI-130 PO; +REGADENOSON 0.4 MG/5 ML DISP.SYRIN. IV ONE
--- NOTE | 2020-11-13 17:49 | RAD ---
MR#: [id number] Date of Study: 11/13/2020 Ordering Physician: LILLY GARVEY, Referring Physician: ROSELYN ROCHA Tech: ZOHAIB Kinsey APPROVED REPORT Test Type: Pharmacological Stress Nurse/Tech: Divya Kurtz RN Test Indications: CAD Cardiac History: PTCA, HTN, hyperlipidemia Medications: See Electronic Medical Record Medical History: See Electronic Medical Record Resting ECG: SR BBB Resting Heart Rate: 63 bpm Resting Blood Pressure: 116/68mmHg Pretest Chest Pain: None Nurse/Tech Notes Lungs CTA, S1S2 Consent: The procedure was explained to the patient in lay terms. Informed consent was witnessed. Elliott eout was entered into [employer]. History and Stress Test performed by YVONNE Thomas, COLLEENT (R) (N) Pharm. Details Pharmacologic stress testing was performed using 0.4mg per 5ml of regadenoson given intravenously ove r 7-10 seconds. Stress Symptoms No chest pain or symptoms. POST EXERCISE Reason for Termination: Infusion complete Max HR: 99 bpm Max Blood Pressure: 126/67mmHg Blood Pressure response to exercise: Normal blood pressure response during stress. Heart Rate response to exercise: normal response Chest Pain: No. Arrhythmia: No. ST Change: No. INTERPRETATION Stress EKG Conclusion: The resting EKG shows a sinus rhythm, incomplete right bundle branch block and mild nonspecific ST-T wave changes. The stress EKG shows mild further nonspecific ST-T wave changes that are not diagnostic of ischemia. No EKG evidence of stress-induced ischemia. Imaging Protocol IMAGE PROTOCOL: Rest Tc-99m/stress Tc-99m 1 day Rest: Stress: Viability: Radiopharm.Tc99m CwrvrgzpjGq03b Sestamibi Dose9.6mCi 33mCi Duration 15min. 10min. Img Date 11/13/2020 11/13/2020 Inj-Img [id number]. 60min. Rest Admin Site:IV - Left HandAdministrator:YVONNE Thomas, COLLEENT (R)(N) Stress Admin Site: IV - Left HandAdministrator: Jorge Alberto Quiñones, RT (R)(N) STRESS DATA End Diast. Vol.93.0mlAv. Heart Rate69.0bpm End Syst. Vol.20.0mlCO Index BSA0.0L/min Myocardial Sihi557.0gEject. Ubnhqvdw47.0% Stress Rates Pk. Fill Rate3.00EDV/secLVtime Pk. Fill 172.80msec Pk. Empty Rate3.94ESV/secLVtime Pk. Oklqu914.26msec 03/30 Pk. Fill1.17EDV/sec Stress Scores Regional WT0.00Summed WT1.00 Regional WM0.00Summed WM0.00 LV Perfusion The stress scans show no significant defects. The rest scans show no significant defects. Nuclear imaging shows no reversible ischemia or infarct. Wall Motion Left ventricular systolic function is normal with no regional wall motion abnormalities and an ejecti on fraction of greater than 70%. LV Perf. Quant 17 Seg. SSS0.00 17 Seg. SRS0.00 17 Seg. SDS0.00 Stress Defect Extent (% LAD)0.00Rest Defect Extent (% LAD)0.00Rev. Defect Extent (% LAD)0.00 Stress Defect Extent (% LCX) 0.00Rest Defect Extent (% LCX)0.00Rev. Defect Extent (% LCX)0.00 Stress Defect Extent (% RCA)0.00Rest Defect Extent (% RCA)0.00Rev. Defect Extent (% RCA)0.00 Stress Defect Extent (% KAVON)0.00Rest Defect Extent (% KAVON)0.00Rev. Defect Extent (% KAVON)0.00 Conclusion 1. No EKG evidence of stress-induced ischemia. 2. Nuclear imaging shows no reversible ischemia or infarct. 3. Normal left ventricular systolic function with an ejection fraction of greater than 70%. 4. Low risk Lexiscan scan nuclear stress test. Signed by : Everett Arzate MD Electronically Approved : 11/13/2020 17:48:24
== END ==
LOC: NM 09:05
PROVIDERS: ATTEND Internal Medicine Cardiovascular Disease
DX: I25.10 Atherosclerotic heart disease of native coronary artery without angina pectoris (principal)
CPT/HCPCS: 78452; 93017; A9500; J2785

== ENCOUNTER → 2021-05-21 | Outpatient (CLI) | payer MEDICARE ==
[~2021-05-21] MED LIST changes: +CYCL10TA19 PO; -CYCL10TA2 PO; -LISI1TAB20 PO; +LISI1TAB39 PO; -REGADENOSON 0.4 MG/5 ML DISP.SYRIN. IV ONE
--- NOTE | 2021-05-21 12:33 | CARD ---
MR#: [id number] Date of Study: 05/21/2021 Ordering Physician: LILLY SNYDER, Referring Physician: Fuad ROCHA: Cali Jones [facility] APPROVED REPORT EXAM: Two-dimensional and M-mode echocardiogram with Doppler and color Doppler. Other Information Quality : AverageHR: 67bpm Rhythm : NSR INDICATION Cardiac Disease: CAD RISK FACTORS Hypertension Hyperlipidemia 2D DIMENSIONS Left Atrium(2D)4.0 (1.6-4.0cm)IVSd1.2 (0.7-1.1cm) Aortic Root(2D)4.0 (2.0-3.7cm)LVDd4.8 (3.9-5.9cm) LVOT Diameter2.1 (1.8-2.4cm)PWd1.2 (0.7-1.1cm) LA Zbnxmc02 (18-58mL)LVDs2.6 (2.5-4.0cm) FS (%) 45.8 %SV81.8 ml LVEF(%)77.1 (>50%) Aortic Valve AoV Peak Tunde.111.1cm/sAoV VTI24.6cm AO Peak GR.4.9mmHgLVOT Peak Tunde.91.6cm/s AO Mean GR.3mmHgAVA (VMAX)2.82cm2 Mitral Valve MV E Wjmzptlz68.9cm/sMV E Peak Gr.3mmHg MV DECEL CUTU656jdUE A Rzmtksev96.7cm/s MV E Mean Gr.1mmHgE/A Ratio1.2 Pulmonary Valve PV Peak Typecggh40.9cm/s Tricuspid Valve TR P. Ozefkgdv445mo/sTR Peak Gr.24mmHg Pulmonary Vein S1 Yikyaknm64.5cm/sD2 Yrrmhfhv41.6cm/s LEFT VENTRICLE The left ventricle is normal size. There is mild concentric left ventricular hypertrophy. The left ve ntricular systolic function is normal. The ejection fraction is estimated at 60%. There is normal LV segmental wall motion. No left ventricle thrombus noted on this study. There is no ventricular septal defect visualized. There is no left ventricular aneurysm. There is no mass noted in the left ventric le. RIGHT VENTRICLE The right ventricle is normal size. There is normal right ventricular wall thickness. The right ventr icular systolic function is normal. ATRIA The left atrium is borderline dilated. The right atrium size is normal. The interatrial septum is int act with no evidence for an atrial septal defect or patent foramen ovale as noted on 2-D or Doppler i maging. AORTIC VALVE The aortic valve is normal in structure and function. The aortic valve is trileaflet. Doppler and Col or Flow revealed no significant aortic regurgitation. There is no significant aortic valvular stenosi s. There is no aortic valvular vegetation. MITRAL VALVE The mitral valve is normal in structure and function. There is no evidence of mitral valve prolapse. There is no mitral valve stenosis. Doppler and Color-flow revealed mild mitral regurgitation. TRICUSPID VALVE The tricuspid valve is normal in structure and function. Doppler and Color Flow revealed trace to mil d tricuspid regurgitation. The PA pressure was estimated at 32 mmHg. There is no tricuspid valve prol apse or vegetation. There is no tricuspid valve stenosis. PULMONIC VALVE The pulmonary valve is normal in structure and function. Doppler and Color Flow revealed no pulmonic valvular regurgitation. There is no pulmonic valvular stenosis. GREAT VESSELS The aortic root is normal in size. The ascending aorta is normal in size. The pulmonary artery is nor mal. The IVC is normal in size and collapses >50% with inspiration. PERICARDIAL EFFUSION There is no pleural effusion. There is no evidence of significant pericardial effusion. Critical Notification Critical Value: No <Conclusion> The left ventricular systolic function is normal. The ejection fraction is estimated at 60%. There is normal LV segmental wall motion. Mild mitral regurgitation. Trace to mild tricuspid regurgitation. The PA pressure was estimated at 32 mmHg. There is no evidence of significant pericardial effusion. Signed by : Lilly Snyder, Electronically Approved : 05/21/2021 12:32:28
== END ==
LOC: ECHO 09:31
PROVIDERS: ATTEND Internal Medicine Cardiovascular Disease
DX: I36.1 Nonrheumatic tricuspid (valve) insufficiency (principal); I11.9 Hypertensive heart disease without heart failure; I25.10 Atherosclerotic heart disease of native coronary artery without angina pectoris
CPT/HCPCS: 93306; C8929